=== PATIENT | male | born 1940 | race Caucasian/White ===

== ENCOUNTER 2016-12-01 14:35 | Emergency (ER) | payer MEDICARE, OTHER ==
[2016-12-01 13:51] LABS: ASCORBIC ACID (UR NOT ORDER) NEG (NEG); BILIRUBIN, URINE NEGATIVE (NEG); ER URINALYSIS TAT 0 Hrs 14 Mins; KETONE, URINE NEGATIVE (NEG); LEUKOCYTE ESTERASE(NOT OR NEG (NEG); NITRITE (URINE) NEG (NEG); WBC (NOT ORDERED) (RFLEX) < 1 (0-5)
[~2016-12-01 14:35] MED LIST: AMB10 PO; FLAG500TAB PO; L40 PO; LORTAB10 PO; MOBIC15 MG PO; MULTIPLE VIT PO; NEUR300 PO; NORCO1 TAB PO; PRILO PO; PROBIOTIC OR; PROTONIX PO; REG PO; SUCR PO; VANCOCIN HCL250 MG PO; VITAMIN B-121000 MC1 SL; XANAX1 MG PO; Z300 PO; ZESTRIL10 MG PO
[2017-01-22] MEDS ORDERED: REST15 PO (09:24)
[2017-01-22] MEDS ORDERED: AT25 PO (09:26)
== END 2016-12-01 15:31 | disposition home or self-care (01) ==
LOC: ER 14:35
PROVIDERS: Emergency Medicine
DX: R36.1 Hematospermia (principal); I10 Essential (primary) hypertension; Z88.0 Allergy status to penicillin; Z79.899 Other long term (current) drug therapy
CPT/HCPCS: 81001; 99283